=== PATIENT | female | born 1995 | race Caucasian/White ===

== ENCOUNTER 2020-07-22 16:54 | Emergency (ER) | payer MEDICAID, SELFPAY ==
[2020-07-22 16:54] VITALS: BP 143/83; PULSE 109; RESP 16; TEMP 36.4; O2SAT 99; BMI 23.2
--- NOTE | 2020-07-22 17:27 | EX.ED.DYSGE1 ---
HPI History of Present Illness Chief Complaint: Abd Pain Informant: patient Onset/Context/Timing Onset: Days (3 days) Context: Gradual Onset Timing: Waxes and wanes (Constant today) Current Severity: Moderate Maximum Severity: Moderate Narrative Narrative: Patient presents with right upper quadrant pain. Pain is been ongoing for the past 3 days. Initially pain would get worse after eating and then subside. Today pain has been constant all day. Patient states she has not eaten today because of the pain. She has had episodes of nausea as well as diarrhea. No fever or chills. Pain does radiate to her back and up to her neck on the right. She reports increased pain when she takes a deep breath. [facility] Medical History (Updated 07/22/20 @ 19:[address] Grisel Hu MD) Anxiety Home Medications omeprazole 20 mg PO DAILY #30 cap 07/22/20 [Rx Last Taken Unknown] sertraline [Zoloft] 50 mg DAILY 07/22/20 [History Last Taken Unknown] Allergy/AdvReac Type Severity Reaction Status Date / Time aspirin Allergy Swelling Verified 07/22/20 16:57 guaifenesin [From Mucinex] Allergy Hives Verified 10/23/13 18:47 Surgical History (Updated 07/22/20 @ 17:[address] Grisel Hu MD) History of Social History Smoking Status: Never smoker ROS ROS ED Constitutional Constitutional ED: Denies chills or fever(s) Eyes Eyes: Denies change in vision ENT ENT ED: Denies sore throat Cardiovascular Cardiovascular: Denies chest pain Respiratory/Chest Respiratory/Chest: Reports other Details: Increased pain with deep breath but does not feel short of breath. ; Denies cough or dyspnea Gastrointestinal Gastrointestinal: Reports abdominal pain, diarrhea and nausea; Denies vomiting Genitourinary Genitourinary ED: Denies dysuria Musculoskeletal Musculoskeletal: Denies back pain Integumentary Denies rash Neurologic Neurologic: Denies headache(s) or weakness Psychiatric Psychiatric: Denies anxiety or depression Endocrine Endocrinology: Denies polydipsia or polyuria Allergic/Immunologic Allergic/Immunologic ED: Denies urticaria EXAM Physical Exam Const Vital Signs: 07/22/20 16:54 Temperature 97.6 F L Temperature Source Temporal Pulse Rate 109 H Respiratory Rate 16 Blood Pressure 143/83 H Blood Pressure Mean 103 Pulse Ox 99 Oxygen Delivery Method Room Air Positive well nourished and well developed General Appearance ED: well developed HEENT Reports normocephalic and head/scalp atraumatic Eyes PERRL and EOMs intact bilaterally Neck supple Chest Wall inspection of chest normal and palpation of chest normal Resp normal respiratory effort and clear to auscultation bilaterally Cardio regular rate and regular rhythm GI Auscultation: hypoactive bowel sounds Palpation: soft and tender RUQ and Moreno's sign Back/Spine no CVA tenderness Extremity normal to inspection Neuro oriented x3 and no sensory deficits noted Sensorium / Orientation: alert Motor Exam: strength 5/5 throughout Psych mental status grossly normal Skin no rashes or lesions noted MDM MDM MDM Narrative Medical decision making narrative: Patient was given morphine and Zofran for pain. Lab work is initiated. Lab Data Attestation: I reviewed the patient's lab results. Labs: Laboratory Results - last 24 hr 07/22/20 07/22/20 07/22/20 17:24 17:24 17:24 WBC 9.2 RBC 5.06 Hgb 13.8 Hct 43.1 MCV 85.2 MCH 27.3 MCHC 32.0 RDW Std Deviation 42.7 RDW Coeff of [place] 13.7 Plt Count 292 MPV 9.0 Immature Gran % (Auto) 0.200 Neut % (Auto) 69.4 Lymph % (Auto) 14.8 L Johnston % (Auto) 10.9 H Eos % (Auto) 4.0 Baso % (Auto) 0.7 Absolute Neuts (auto) 6.4 Absolute Lymphs (auto) 1.36 Nucleated RBC % 0 Sodium 138 Potassium 3.4 L Chloride 105 Carbon Dioxide 28.0 Anion Gap 5 BUN 7 Creatinine 0.55 Estim Creat Clear Calc 110.36 Est GFR (MDRD) Af Amer 170 Est GFR (MDRD) Non-Af 141 BUN/Creatinine Ratio 12.8 Glucose 78 Calcium 9.2 Total Bilirubin 0.40 Direct Bilirubin 0.11 AST 16 ALT 25 Alkaline Phosphatase 92 Total Protein 8.0 Albumin 3.8 Globulin 4.2 Lipase 79 Serum , Qual NEGATIVE Radiography Diagnostic Testing: Radiology Impression Abdomen CT 07/22/20 18:24 IMPRESSION: No acute abnormalities. Nonobstructing stone of the left lower kidney. Electronically Signed: Jerome Becker MD at 19:34 EDT , Service support , Chest CTA 07/22/20 18:24 IMPRESSION: Normal CTA chest examination, without a demonstrated pulmonary embolism or arterial dissection. Electronically Signed: Jerome Becker MD at 19:27 EDT , Service support , Treatment and Re-Evaluation Comments:: Blood work is largely unremarkable. This raises the question for potential lower lobe PE causing her symptoms. I did do a CTA chest and abdomen so we could fully evaluate for this as well as looking at her liver and gallbladder. The studies are largely unremarkable. Patient resting comfortably on repeat exam. Test results discussed with her. I did suggest the idea that she may have an ulcer causing her symptoms as her gallbladder appears to be normal at this time. She will be started on Prilosec. If she continues to have symptoms I recommended follow-up with her PCP for possible scope or HIDA scan. She is given return instructions. Discharge Plan Triage Chief Complaint: Abd Pain ED Provider: Grisel Hu Dx/Rx/DC Orders Clinical Impression: Right upper quadrant abdominal pain Instructions: ED Abdominal Pain Unkn Cause Fem Prescriptions: New omeprazole [omeprazole] 20 MG capsule 20 mg PO DAILY Qty: 30 RF: 0 No Action sertraline [Zoloft] 50 mg tablet 50 mg DAILY RF: 0 Primary Care Provider: Obdulia Armando Referrals: Obdulia Armando MD [Primary Care Provider] - 1 Week if not improving Disposition Disposition: Home, self care
[2020-07-22] MEDS: Ondansetron 4 MG/2 ML Vial IV (17:30)
[2020-07-22] MEDS: Morphine 4 MG/ML Syringe IV (17:30)
[2020-07-22] MEDS: 0.9% Normal Saline 1,000 ML 150 ML IV (17:30)
[2020-07-22 17:44] LABS: Absolute Lymphocyte Count 1.36 X10^3/uL (0.83-4.51); Absolute Neutrophil Count 6.4 X10^3/uL (2.0-7.7); Basophil# 0.06 X10^3/uL; Basophil% 0.7 % (0-1); Eosinophil# 0.37 X10^3/uL; Hematocrit 43.1 % (37-47); Hemoglobin 13.8 g/dL (12.0-15.0); Lymphocyte # 1.36 X10^3/ul (0.83-4.51); Lymphocyte % 14.8 % (19-41); Mean Corpuscular Hgb 27.3 pg (27.0-32.0); Mean Corpuscular Volume 85.2 fL (81-99); Monocyte% 10.9 % (0-10); NRBC Flagged by Analyzer 0 % (0-5); Neutrophil # 6.37 X10^3/uL (2.7-7.7); Neutrophil % 69.4 % (47-70); Platelet Count 292 K/mm3 (150-450); RBC Distribution Width CV 13.7 % (11.6-14.6); RBC Distribution Width SD 42.7 fl (35.1-43.9); Red Blood Count 5.06 M/mm3 (4.2-5.4); White Blood Count 9.2 K/mm3 (4.4-11.0)
[2020-07-22 17:58] LABS: AST(SGOT) 16 U/L (15-37); Alanine Aminotransfer ALT/SGPT 25 U/L (13-56); Albumin, Serum 3.8 g/dL (3.2-5.0); Alkaline Phosphatase 92 U/L (45-117); Anion Gap 5 (5-15); BUN 7 mg/dL (7-18); BUN/Creat Ratio 12.8 RATIO (10-20); Bilirubin, Direct 0.11 mg/dL (0.00-0.30); Calcium,Total 9.2 mg/dL (8.5-10.1); Chloride 105 mmol/L (98-107); Creatinine, Serum 0.55 mg/dL (0.55-1.02); EST Glomerular Filtration Rate 141 mL/min (>60); Est Glom Filt Rate - Afr Amer 170 mL/min (>60); Estimated Creatinine Clearance 110.36 ml/min; Globulin 4.2 g/dL (2.2-4.2); Glucose 78 mg/dL (74-106); Lipase 79 U/L (73-393); Potassium 3.4 mmol/L (3.5-5.1); Sodium Level 138 mmol/L (136-145)
[2020-07-22 18:09] LABS: Internal QC Validated? YES +Cl - CLEAR BKGD; Pregnancy, Serum, hCG Quali. NEGATIVE Negative
--- NOTE | 2020-07-22 18:24 | CT_ITS ---
STUDY: CTA CHEST REASON FOR EXAM: Female, 25 years old. dyspnea RADIATION DOSAGE (If Supplied By Facility): CTDIvol = ( 7.66 ) mGy, DLP = ( 409.03 ) mGycm TECHNIQUE: The examination was performed with the intravenous administration of IV 75mL Isovue-370. Post-processing of the angiographic images was performed, with multiplanar reformation and 3D reconstruction. Individualized dose optimization techniques were used for this CT. COMPARISON: None. FINDINGS: Normal enhancement of the main pulmonary artery and right and left pulmonary arteries. Normal enhancement of the bilateral peripheral pulmonary arteries. There is no demonstrated pulmonary embolism. Normal thoracic aorta and visualized great vessels. There is no demonstrated aortic dissection. Normal heart and pericardium. Normal mediastinum. Normal hilar regions. Normal visualized trachea and bronchi. The lungs are well expanded. Normal pulmonary parenchyma. Normal pleura. Normal chest wall structures. Normal osseous structures. Normal visualized upper abdomen. CT/CTA Chest W/WO Contrast IMPRESSION: Normal CTA chest examination, without a demonstrated pulmonary embolism or arterial dissection. Electronically Signed: Jerome Becker MD at 19:27 EDT , Service support ,
--- NOTE | 2020-07-22 18:24 | CT_ITS ---
STUDY: CT ABDOMEN WITH CONTRAST REASON FOR EXAM: Female, 25 years old. RUQ pain RADIATION DOSAGE (If Supplied By Facility): CTDIvol = ( 7.66 ) mGy, DLP = ( 409.03 ) mGycm TECHNIQUE: Transaxial images were obtained post I.V. administration of IV 75mL Isovue-370, and oral contrast. Sagittal and coronal images were reconstructed. Individualized dose optimization techniques were used for this CT. COMPARISON: 10/23/2013. FINDINGS: The visualized lung bases are unremarkable. The visualized portions of the heart are within normal limits. Normal liver. Normal gallbladder and extrahepatic biliary system. Normal spleen. Normal pancreas. Normal bilateral adrenal glands. Normal right kidney. There is an 8 mm nonobstructing stone of the left lower pole, otherwise normal left kidney. Normal visualized stomach. Normal small intestine. Normal colon. The appendix is visualized and appears normal. Normal abdominal aorta. Normal inferior vena cava. Normal retroperitoneum. Normal abdominal wall. Normal osseous structures. CT/Abdomen WITH IV Contrast IMPRESSION: No acute abnormalities. Nonobstructing stone of the left lower kidney. Electronically Signed: Jerome Becker MD at 19:34 EDT , Service support ,
[2020-07-22] MEDS: Famotidine 20 MG Tablet 40 MG PO (19:54)
== END 2020-07-22 19:55 | disposition home or self-care (01) ==
PROVIDERS: Emergency Provider Emergency Medicine; PCP Family Medicine Sports Medicine
DX: R10.11 Right upper quadrant pain (principal); M54.2 Cervicalgia; M54.9 Dorsalgia, unspecified; F41.9 Anxiety disorder, unspecified; Z79.899 Other long term (current) drug therapy
CPT/HCPCS: 71275; 74160; 80048; 80076; 83690; 84703; 85025; 96361; 96374; 96375; 99282; J7030; Q9967; A4216; J2405

== ENCOUNTER 2020-07-29 11:38 | Emergency (ER) | payer MEDICAID, SELFPAY ==
[2020-07-29 11:38] VITALS: BP 146/86; PULSE 88; RESP 16; TEMP 36.6; O2SAT 99; BMI 23.4
[2020-07-29 11:42] VITALS: BP 146/86; PULSE 88; RESP 16; TEMP 36.6; O2SAT 99
--- NOTE | 2020-07-29 12:20 | EX.ED.DYSGE1 ---
HPI History of Present Illness Chief Complaint: General Illness Informant: patient Onset/Context/Timing Onset: Today Timing: Continuous Current Severity: Mild Maximum Severity: Moderate Narrative Narrative: 25-year-old female complaining of vaginal bleeding this morning. Said she went through several pads. States his clots. Denies any pelvic pain. Does not believe she is . Said her last menstrual period was 2 weeks ago. She is G3, P3 Ab0. She denies any discharge or dysuria. She denies any pain. Prior similar symptoms: No Recent Illness/Hospitalization: No PFSH PFSH Medical History Anxiety Home Medications omeprazole 20 mg PO DAILY #30 cap 07/22/20 [Rx Last Taken Unknown] sertraline [Zoloft] 50 mg DAILY 07/22/20 [History Last Taken Unknown] Allergy/AdvReac Type Severity Reaction Status Date / Time aspirin Allergy Swelling Verified 07/22/20 16:57 guaifenesin [From Mucinex] Allergy Hives Verified 10/23/13 18:47 Surgical History History of Social History Smoking Status: Never smoker ROS ROS ED ROS Narrative Patient denies any recent illness. Review of Systems ROS Unobtainable: Denies due to encephalopathy Constitutional Constitutional ED: Denies chills or fever(s) Eyes Eyes: Denies change in vision ENT ENT ED: Denies ear pain or sore throat Cardiovascular Cardiovascular: Denies chest pain Respiratory/Chest Respiratory/Chest: Denies cough or dyspnea Gastrointestinal Gastrointestinal: Denies abdominal pain, diarrhea, nausea or vomiting Genitourinary Genitourinary ED: Denies dysuria Musculoskeletal Musculoskeletal: Denies myalgias Integumentary Denies rash Neurologic Neurologic: Denies headache(s) Psychiatric Psychiatric: Denies depression Endocrine Endocrinology: Denies polyuria Allergic/Immunologic Allergic/Immunologic ED: Denies urticaria EXAM Physical Exam Narrative Exam Narrative: Well-appearing young female. Vital signs stable afebrile. No distress. Exam benign. Lungs are clear. Heart regular rhythm. Abdomen soft nontender. Const Vital Signs: 07/29/20 11:38 07/29/20 11:42 07/29/20 15:08 Temperature 97.8 F 97.8 F Temperature Source Temporal Temporal Pulse Rate 88 88 Respiratory Rate 16 16 16 Blood Pressure 146/86 H 146/86 H Blood Pressure Mean 106 106 Pulse Ox 99 99 Oxygen Delivery Method Room Air Room Air HEENT Reports moist mucous membranes Negative for trauma or tenderness Eyes PERRL and EOMs intact bilaterally Neck no lymphadenopathy, supple and no JVD General: Negative for tenderness Chest Wall inspection of chest normal Resp normal respiratory effort and clear to auscultation bilaterally Cardio regular rate, regular rhythm and no murmurs GI normal to inspection, nondistended, normoactive bowel sounds, non-tender and non-distended Auscultation: normoactive bowel sounds Palpation: soft Back/Spine no CVA tenderness Extremity normal to inspection Neuro oriented x3 and CN's II-XII intact bilaterally Sensorium / Orientation: alert Motor Exam: strength 5/5 throughout Psych mental status grossly normal Skin no rashes or lesions noted MDM MDM MDM Narrative Medical decision making narrative: Young female with vaginal bleeding. Benign exam. CBC and serum being obtained. When I went back to reevaluate the patient and do a pelvic exam she had left without being discharged. Lab Data Attestation: I reviewed the patient's lab results. Lab results narrative: Serum test negative. CBC showed a normal white count 7 hemoglobin 11.8 which was 2 units down from 1 week ago. Labs: Laboratory Results - last 24 hr 07/29/20 07/29/20 12:10 12:10 WBC 7.1 RBC 4.40 Hgb 11.8 L Hct 37.5 MCV 85.2 MCH 26.8 L MCHC 31.5 L RDW Std Deviation 41.4 RDW Coeff of [place] 13.3 Plt Count 345 MPV 9.2 Serum , Qual NEGATIVE Discharge Plan Triage Chief Complaint: General Illness Other Complaint: Vag Bleeding ED Provider: Ar Nuñez Dx/Rx/DC Orders Clinical Impression: Abnormal vaginal bleeding Instructions: ED Dysfunctional Uterine Bleeding Prescriptions: No Action sertraline [Zoloft] 50 mg tablet 50 mg DAILY RF: 0 omeprazole [omeprazole] 20 MG capsule 20 mg PO DAILY Qty: 30 RF: 0 Primary Care Provider: Obdulia Armando Referrals: Obdulia Armando MD [Primary Care Provider] - Activity Restrictions/Additional Instructions: Patient left prior to being discharged. We will try to contact her via phone. Disposition Disposition: Against Medical Advice Discharge Date/Time: 07/29/20 17:41
[2020-07-29 12:32] LABS: Hematocrit 37.5 % (37-47); Hemoglobin 11.8 g/dL (12.0-15.0); Mean Corp Hgb Conc 31.5 g/dL (32-36); Mean Corpuscular Hgb 26.8 pg (27.0-32.0); Mean Corpuscular Volume 85.2 fL (81-99); Mean Platelet Vol. 9.2 fl (6.2-12.0); Platelet Count 345 K/mm3 (150-450); RBC Distribution Width CV 13.3 % (11.6-14.6); RBC Distribution Width SD 41.4 fl (35.1-43.9); White Blood Count 7.1 K/mm3 (4.4-11.0)
[2020-07-29 12:47] LABS: Internal QC Validated? YES +Cl - CLEAR BKGD; Pregnancy, Serum, hCG Quali. NEGATIVE Negative
[2020-07-29 15:08] VITALS: RESP 16
--- NOTE | 2020-07-29 17:38 | ED.RN ---
noticed pt door open, gown on the bed. pt had removed iv and left the department.
--- NOTE | 2020-07-29 18:03 | ED.RN ---
PER DR. CASTILLO REQUEST THIS RN CALLED THE PATIENT SO HE COULD SPEAK TO HER. PT PHONE RANG TWICE AND WENT TO [facility]. [facility] LEFT ASKING FOR HER TO CALL THE ER TO SPEAK TO THE PHYSICIAN WITH THE ER PHONE NUMBER GIVEN. DR. CASTILLO NOTIFIED
== END 2020-07-29 17:41 | disposition left against medical advice (07) ==
PROVIDERS: Emergency Provider Emergency Medicine; PCP Family Medicine Sports Medicine
DX: N93.8 Other specified abnormal uterine and vaginal bleeding (principal); F41.9 Anxiety disorder, unspecified; Z79.899 Other long term (current) drug therapy
CPT/HCPCS: 84703; 85027; 99284

== ENCOUNTER 2020-08-10 05:44 | Emergency (ER) | payer MEDICAID, SELFPAY ==
[2020-08-10 05:44] VITALS: BP 139/96; PULSE 111; RESP 18; TEMP 36.8; O2SAT 100; BMI 20.2
--- NOTE | 2020-08-10 05:48 | EDS_ITS ---
HPI History of Present Illness Chief Complaint: Sore Throat Informant: patient Narrative Narrative: 25-year-old female presents with multiple complaints including sore throat, headache, fever, cough. States the all began over the past 3 hours. States that she had 2 episodes of vomiting. Nonbilious and nonbloody. Denies any urinary symptoms. Denies any chest pain, shortness of breath. Denies any sick contacts. [facility] Medical History (Updated 08/10/20 @ 06:[address] Raul Galicia DO) Anxiety Depression Home Medications omeprazole 20 mg PO DAILY #30 cap 07/22/20 [Rx Last Taken Unknown] sertraline [Zoloft] 50 mg DAILY 07/22/20 [History Last Taken Unknown] ondansetron 4 mg PO Q8H PRN #10 tab 08/10/20 [Rx Last Taken Unknown] Allergy/AdvReac Type Severity Reaction Status Date / Time aspirin Allergy Swelling Verified 08/10/20 05:50 guaifenesin [From Mucinex] Allergy Hives Verified 08/10/20 05:50 Surgical History History of Social History Smoking Status: Current every day smoker tobacco type: cigarettes ROS ROS ED Constitutional Constitutional ED: Reports chills and fever(s); Denies sweats Eyes Eyes: Denies blurry vision, change in vision or diplopia ENT ENT ED: Reports sore throat; Denies rhinorrhea Cardiovascular Cardiovascular: Denies chest pain, orthopnea, palpitations or racing heartbeat Respiratory/Chest Respiratory/Chest: Reports cough; Denies dyspnea, dyspnea on exertion, orthopnea or sputum Gastrointestinal Gastrointestinal: Denies abdominal pain, constipation, diarrhea, melena, nausea or vomiting Genitourinary Genitourinary ED: Denies dysuria, hematuria or urinary frequency Musculoskeletal Musculoskeletal: Denies arthralgias, myalgias or neck pain Integumentary Denies rash Neurologic Neurologic: Reports headache(s); Denies paresthesias or weakness Psychiatric Psychiatric: Denies anxiety or depression Hematologic/Lymphatic Hematologic/Lymphatic: Denies easy bleeding or easy bruising Allergic/Immunologic Allergic/Immunologic ED: Denies mouth swelling or tongue swelling EXAM Physical Exam Const Vital Signs: 08/10/20 05:44 Temperature 98.2 F Temperature Source Temporal Pulse Rate 111 H Respiratory Rate 18 Blood Pressure 139/96 H Blood Pressure Mean 110 Pulse Ox 100 Oxygen Delivery Method Room Air Positive well nourished and well developed General Appearance ED: well developed HEENT Reports moist mucous membranes normocephalic and atraumatic Eyes PERRL and EOMs intact bilaterally Neck no lymphadenopathy, supple and no JVD Chest Wall inspection of chest normal Resp normal respiratory effort and clear to auscultation bilaterally Cardio regular rate, S1 normal heart sound, S2 normal heart sound and no murmurs Peripheral Pulses: pulses 2+ throughout GI soft to palpation, non-tender and non-distended Back/Spine no CVA tenderness and no thoracic nor lumbar tenderness Extremity normal to inspection General Extremety ED: Negative for edema or tenderness General Extremity: Negative for edema Neuro oriented x3, CN's II-XII intact bilaterally and no sensory deficits noted Sensorium / Orientation: alert Motor Exam: strength 5/5 throughout Psych mental status grossly normal Skin no rashes or lesions noted MDM MDM MDM Narrative Medical decision making narrative: Patient appears well and nontoxic. Initially tachycardic which is resolved on my reevaluation. Rapid strep and Covid negative. Patient given Tylenol and Zofran. Will be given Decadron in the emergency department and Zofran for home. Advised on Tylenol for fevers. Asked to return for new or worsening symptoms. Patient agreeable and discharged home in stable condition. Lab Data Attestation: I reviewed the patient's lab results. Discharge Plan Triage Chief Complaint: Sore Throat ED Provider: Raul Galicia Dx/Rx/DC Orders Clinical Impression: Pharyngitis Instructions: ED Pharyngitis, Viral Prescriptions: New ondansetron 4 mg tablet,disintegrating 4 mg PO Q8H PRN (Reason: nausea and vomiting) Qty: 10 RF: 0 No Action sertraline [Zoloft] 50 mg tablet 50 mg DAILY RF: 0 omeprazole [omeprazole] 20 MG capsule 20 mg PO DAILY Qty: 30 RF: 0 Primary Care Provider: Obdulia Armando Referrals: Obdulia Armando MD [Primary Care Provider] - 2 Days Disposition Disposition: Home, self care
[2020-08-10] MEDS: Acetaminophen 500 MG Tablet 1000 MG PO (05:58)
[2020-08-10] MEDS: Ondansetron ODT 4 MG Tablet PO (05:59)
[2020-08-10] MEDS: dexAMETHasone 10 MG/ML Vial PO.IVFORM (07:05)
== END 2020-08-10 07:08 | disposition home or self-care (01) ==
PROVIDERS: Emergency Provider Emergency Medicine; PCP Family Medicine Sports Medicine
DX: J02.9 Acute pharyngitis, unspecified (principal); R50.9 Fever, unspecified; R05 Cough; R51.9 Headache, unspecified; Z20.822 Contact with and (suspected) exposure to COVID-19; R11.10 Vomiting, unspecified; F32.9 Major depressive disorder, single episode, unspecified; F41.9 Anxiety disorder, unspecified; F17.210 Nicotine dependence, cigarettes, uncomplicated; Z79.899 Other long term (current) drug therapy
CPT/HCPCS: 87426; 87880; 99284

== ENCOUNTER 2020-11-22 10:22 | Emergency (ER) | payer MEDICAID, SELFPAY ==
[2020-11-22 10:22] VITALS: BP 118/94; PULSE 79; RESP 19; TEMP 36.7; O2SAT 100; BMI 22.8
--- NOTE | 2020-11-22 10:35 | EDS_ITS ---
HPI History of Present Illness Chief Complaint: Abd Pain Informant: patient Onset/Context/Timing Onset: Yesterday Context: Gradual Onset Timing: Waxes and wanes Current Severity: Moderate Maximum Severity: Severe Narrative Narrative: Patient presents secondary to lower abdominal pain. She states symptoms started last evening and progressed throughout the night. She points to the suprapubic area. She states she feels like she has to urinate and have a bowel movement but states she is unable to because the muscles do not work. Patient does report vaginal discharge. Last menstrual cycle was 2 months ago. She does report possibility of . She denies fever or chills. [facility] Medical History Anxiety Depression Home Medications omeprazole 20 mg PO DAILY #30 cap 07/22/20 [Rx Last Taken Unknown] sertraline [Zoloft] 50 mg DAILY 07/22/20 [History Last Taken Unknown] ondansetron 4 mg PO Q8H PRN #10 tab 08/10/20 [Rx Last Taken Unknown] doxycycline monohydrate 100 mg PO BID #20 cap 11/22/20 [Rx Last Taken Unknown] hydrocodone-acetaminophen 1 tab PO Q6H PRN 3 Days #10 tab 11/22/20 [Rx Last Taken Unknown] metronidazole 500 mg PO BID 14 Days #28 tab 11/22/20 [Rx Last Taken Unknown] Allergy/AdvReac Type Severity Reaction Status Date / Time aspirin Allergy Swelling Verified 11/22/20 10:25 guaifenesin [From Mucinex] Allergy Hives Verified 11/22/20 10:25 Surgical History History of Social History Smoking Status: Current every day smoker tobacco type: cigarettes ROS ROS ED Constitutional Constitutional ED: Denies chills or fever(s) Eyes Eyes: Denies change in vision ENT ENT ED: Denies sore throat Cardiovascular Cardiovascular: Denies chest pain Respiratory/Chest Respiratory/Chest: Denies cough or dyspnea Gastrointestinal Gastrointestinal: Reports abdominal pain and constipation; Denies diarrhea, nausea or vomiting Genitourinary Genitourinary ED: Denies dysuria Musculoskeletal Musculoskeletal: Denies back pain Integumentary Denies rash Neurologic Neurologic: Denies headache(s) or weakness Allergic/Immunologic Allergic/Immunologic ED: Denies urticaria EXAM Physical Exam Const Vital Signs: 11/22/20 10:22 Temperature 98.1 F Temperature Source Temporal Pulse Rate 79 Respiratory Rate 19 H Blood Pressure 118/94 H Blood Pressure Mean 102 Pulse Ox 100 Oxygen Delivery Method Room Air Positive well nourished and well developed General Appearance ED: well developed HEENT Reports normocephalic and head/scalp atraumatic Eyes PERRL and EOMs intact bilaterally Neck supple Chest Wall inspection of chest normal and palpation of chest normal Resp normal respiratory effort and clear to auscultation bilaterally Cardio regular rate and regular rhythm GI Auscultation: hypoactive bowel sounds Palpation: soft and tender suprapubic; Negative for guarding or rebound tenderness present Extremity normal to inspection Neuro oriented x3 and no sensory deficits noted Sensorium / Orientation: alert Motor Exam: strength 5/5 throughout Psych Mood & Affect: tearful Skin no rashes or lesions noted MDM MDM MDM Narrative Medical decision making narrative: Patient was given morphine and Zofran for pain. Lab work, urinalysis obtained. Lab Data Attestation: I reviewed the patient's lab results. Labs: Laboratory Results - last 24 hr 11/22/20 11/22/20 11/22/20 10:48 10:48 10:48 WBC 9.0 RBC 4.89 Hgb 13.6 Hct 43.8 MCV 89.6 MCH 27.8 MCHC 31.1 L RDW Std Deviation 45.0 H RDW Coeff of [place] 13.8 Plt Count 268 MPV 9.8 Immature Gran % (Auto) 0.200 Neut % (Auto) 86.1 H Lymph % (Auto) 5.7 L [place] % (Auto) 6.2 Eos % (Auto) 1.6 Baso % (Auto) 0.2 Absolute Neuts (auto) 7.8 H Absolute Lymphs (auto) 0.51 L Nucleated RBC % 0 Differential Comment COMMENT Sodium 137 Potassium 3.8 Chloride 108 H Carbon Dioxide 24.0 Anion Gap 5 BUN 11 Creatinine 0.62 Estim Creat Clear Calc 97.90 Est GFR (MDRD) Af Amer 148 Est GFR (MDRD) Non-Af 123 BUN/Creatinine Ratio 17.8 Glucose 102 Calcium 8.7 Serum , Qual NEGATIVE Urine Color Urine Clarity Urine pH Ur Specific [place] Urine Protein Urine Glucose (UA) Urine Ketones Urine Occult Blood Urine Nitrite Urine Bilirubin Urine Urobilinogen Ur Leukocyte Esterase Urine RBC Urine WBC Ur Squamous Epith Cells Urine Bacteria Urine Mucus 11/22/20 11:32 WBC RBC Hgb Hct MCV MCH MCHC RDW Std Deviation RDW Coeff of [place] Plt Count MPV Immature Gran % (Auto) Neut % (Auto) Lymph % (Auto) [place] % (Auto) Eos % (Auto) Baso % (Auto) Absolute Neuts (auto) Absolute Lymphs (auto) Nucleated RBC % Differential Comment Sodium Potassium Chloride Carbon Dioxide Anion Gap BUN Creatinine Estim Creat Clear Calc Est GFR (MDRD) Af Amer Est GFR (MDRD) Non-Af BUN/Creatinine Ratio Glucose Calcium Serum , Qual Urine Color Yellow Urine Clarity Clear Urine pH 6.5 Ur Specific [place] 1.030 Urine Protein Negative Urine Glucose (UA) Normal Urine Ketones Negative Urine Occult Blood Negative Urine Nitrite Negative Urine Bilirubin Negative Urine Urobilinogen Normal Ur Leukocyte Esterase Negative Urine RBC 0 SEEN Urine WBC 0 SEEN Ur Squamous Epith Cells 0-5 SEEN Urine Bacteria 1+ Urine Mucus 0 SEEN Radiography Diagnostic Testing: Radiology Impression Abdomen/Pelvis CT 11/22/20 12:41 IMPRESSION: (NOT LISTED IN ORDER OF SIGNIFICANCE) Urinary bladder wall has wall thickening. This can be related to a partially contractile state. However, a cystitis is not excluded. Urinalysis should be p erformed in an effort to exclude cystitis. 2.6 mm nonobstructive left renal stone. Treatment and Re-Evaluation Comments:: Lab work is reviewed and largely unremarkable. Urinalysis normal. Bladder scan on arrival revealed only [address] scan flank obtained. This reveals thickened bladder wall but no other acute abnormalities noted. On repeat examination patient states her pain is returning. She will be redosed with pain medication. She does have some vaginal discharge and GC and Chlamydia tests are pending at this time. We discussed treating her with antibiotics although tests are still pending. She is interested in this. I do not believe that a pelvic examination would greatly change her course of treatment and she declines pelvic exam in the ER. Discharge Plan Triage Chief Complaint: Abd Pain ED Provider: Grisel Hu Dx/Rx/DC Orders Clinical Impression: Pelvic pain Instructions: ED Pain, Acute, Uncertain Cause Prescriptions: New hydrocodone-acetaminophen 5-325 mg tablet 1 tab PO Q6H PRN (Reason: pain) 3 Days Qty: 10 RF: 0 doxycycline monohydrate 100 MG capsule 100 mg PO BID Qty: 20 RF: 0 metronidazole 500 mg tablet 500 mg PO BID 14 Days Qty: 28 RF: 0 No Action sertraline [Zoloft] 50 mg tablet 50 mg DAILY RF: 0 omeprazole [omeprazole] 20 MG capsule 20 mg PO DAILY Qty: 30 RF: 0 ondansetron 4 mg tablet,disintegrating 4 mg PO Q8H PRN (Reason: nausea and vomiting) Qty: 10 RF: 0 Primary Care Provider: Obdulia Armando Referrals: Cecilio Mendoza MD [STAFF PHYSICIAN] - As soon as possible Obdulia Armando MD [Primary Care Provider] - Disposition Disposition: Home, Self Care
[2020-11-22] MEDS: Ondansetron 4 MG/2 ML Vial IV ×2 (10:49→14:25)
[2020-11-22] MEDS: 0.9% Normal Saline 1,000 ML 150 ML IV (10:49)
[2020-11-22] MEDS: Morphine 4 MG/ML Syringe IV ×2 (10:50→14:25)
[2020-11-22 10:59] LABS: Absolute Lymphocyte Count 0.51 X10^3/uL (0.83-4.51); Absolute Neutrophil Count 7.8 X10^3/uL (2.0-7.7); Basophil# 0.02 X10^3/uL; Basophil% 0.2 % (0-1); Eosinophil# 0.14 X10^3/uL; Eosinophils% 1.6 % (0-5); Hematocrit 43.8 % (37-47); Hemoglobin 13.6 g/dL (12.0-15.0); Lymphocyte # 0.51 X10^3/ul (0.83-4.51); Lymphocyte % 5.7 % (19-41); Mean Corp Hgb Conc 31.1 g/dL (32-36); Mean Corpuscular Hgb 27.8 pg (27.0-32.0); Mean Corpuscular Volume 89.6 fL (81-99); Mean Platelet Vol. 9.8 fl (6.2-12.0); Monocyte# 0.56 X10^3/uL; Monocyte% 6.2 % (0-10); NRBC Flagged by Analyzer 0 % (0-5); Neutrophil # 7.77 X10^3/uL (2.7-7.7); Neutrophil % 86.1 % (47-70); POSITIVE DIFFERENTIAL YES; Platelet Count 268 K/mm3 (150-450); RBC Distribution Width CV 13.8 % (11.6-14.6); Red Blood Count 4.89 M/mm3 (4.2-5.4)
[2020-11-22 11:01] LABS: Differential Indicated SCAN CRITERIA MET
[2020-11-22 11:11] LABS: Internal QC Validated? YES +Cl - CLEAR BKGD; Pregnancy, Serum, hCG Quali. NEGATIVE Negative
[2020-11-22 11:20] LABS: Anion Gap 5 (5-15); BUN 11 mg/dL (7-18); BUN/Creat Ratio 17.8 RATIO (10-20); Calcium,Total 8.7 mg/dL (8.5-10.1); Chloride 108 mmol/L (98-107); Creatinine, Serum 0.62 mg/dL (0.55-1.02); EST Glomerular Filtration Rate 123 mL/min (>60); Est Glom Filt Rate - Afr Amer 148 mL/min (>60); Glucose 102 mg/dL (74-106); Potassium 3.8 mmol/L (3.5-5.1); Sodium Level 137 mmol/L (136-145)
[2020-11-22 11:37] LABS: Mucous, Urine 0 SEEN /hpf (<or=2+); Red Blood Cells-Urine 0 SEEN /hpf (0-5); White Blood Cells 0 SEEN /hpf (0-5)
[2020-11-22 11:41] LABS: Color, Urine Yellow (Yellow); Glucose, Dipstick Normal (Normal); Ketone-Dipstick Negative (Negative); Leukocyte Esterase-Dipstick Negative /ul (Negative); Nitrite-Dipstick Negative (Negative); Occult Blood-Urine Negative /ul (Negative); Protein-Dipstick Negative (Negative); Urine Bilirubin Dipstick Negative (Negative); Urine Clarity Clear (Clear); Urine Urobilinogen Normal (Normal); Urine pH 6.5 (5.0 - 8.0)
[2020-11-22 12:00] LABS: Bacteria 1+ /hpf (None Seen); Squamous Epithelial Cells - UA 0-5 SEEN /hpf (5-10)
--- NOTE | 2020-11-22 12:41 | CT_ITS ---
STUDY: CT Abdomen And Pelvis W/O Contrast Injection 11/22/2020 1:32 PM REASON FOR EXAM: Female, 25 years old. ABDOMINAL PAIN abd pain TECHNIQUE: Transaxial images were obtained without oral contrast, and without intravenous contrast. Individualized dose optimization techniques were used for this CT. COMPARISON: None. FINDINGS: The visualized lung bases are unremarkable. The visualized portions of the heart are within normal limits. Normal liver. Normal gallbladder and extrahepatic biliary system. Normal spleen. Normal pancreas. Normal bilateral adrenal glands. Normal right kidney. 2.6 mm nonobstructive left renal stone. Normal visualized stomach. Normal small intestine. Normal colon. The appendix is visualized and appears normal. Normal abdominal aorta. Normal inferior vena cava. Normal retroperitoneum. Urinary bladder wall has wall thickening. This can be related to a partially contractile state. However, a cystitis is not excluded. Urinalysis should be performed in an effort to exclude cystitis. There is a midline ventral abdominal wall defect. This contains nonobstructed colon. Normal osseous structures. IMPRESSION: (NOT LISTED IN ORDER OF SIGNIFICANCE) Urinary bladder wall has wall thickening. This can be related to a partially contractile state. However, a cystitis is not excluded. Urinalysis should be performed in an effort to exclude cystitis. 2.6 mm nonobstructive left renal stone. Electronically Signed: Russell Edouard MD at 13:34 EDT , Service support , CT/Abdomen/Pelvis without Cont
[2020-11-22] MEDS: Doxycycline 100 MG CAPSULE PO (14:25)
[2020-11-22] MEDS: metroNIDAZOLE 500 MG Tablet PO (14:25)
[2020-11-22] MEDS: Ceftriaxone 500 MG Vial 250 MG IM (14:45)
[2020-11-22 14:56] LABS: Chlamydia Trachomatis by PCR Negative (Negative)
[2020-11-22 14:58] LABS: Neisserai gonorrhoeae by PCR Positive (Negative)
[2020-11-22 14:59] LABS: Probe Check PASS
[2020-11-22 15:08] VITALS: BP 124/84; PULSE 86; RESP 16; O2SAT 96
== END 2020-11-22 15:09 | disposition home or self-care (01) ==
PROVIDERS: Emergency Provider Emergency Medicine; PCP Family Medicine Sports Medicine
DX: R10.2 Pelvic and perineal pain (principal); N89.8 Other specified noninflammatory disorders of vagina; K59.00 Constipation, unspecified; F32.9 Major depressive disorder, single episode, unspecified; F41.9 Anxiety disorder, unspecified; F17.210 Nicotine dependence, cigarettes, uncomplicated; Z79.899 Other long term (current) drug therapy
CPT/HCPCS: 74176; 80048; 81001; 84703; 85025; 87491; 87591; 96360; 96361; 99285; J2405